=== PATIENT | male | born 1955 | race Caucasian/White ===

== ENCOUNTER → 2018-09-22 | Outpatient (CLI) | payer OTHER ==
[~2018-09-22] MED LIST: REGADENOSON 0.4 MG/5 ML DISP.SYRIN. IV ONE
--- NOTE | 2018-09-22 10:16 | PCVCIMAG ---
APPROVED REPORT Study performed: 09/22/2018 08:29:01 EXAM: Comprehensive 2D, Doppler, and color-flow Echocardiogram Patient Location: Echo lab Status: routine BSA: 2.02 HR: 67 bpmBP: 140/72 mmHg Rhythm: NSR Other Information Study Quality: Adequate Indications Dyspnea Palpitations coronary calcium score 2D Dimensions IVSd: 10.46 (7-11mm) LVDd: 37.65 mm PWd: 9.69 (7-11mm)Ascending Ao: 40.75 (22-36mm) LVDs: 32.18 (25-40mm) Left Atrium: 32.74 (27-40mm) Aortic Root: 39.21 mm LV Single Plane 4CH: 54.19 % LV Single Plane 2CH: 61.54 % Biplane EF: 56.9 % Volumes Left Atrial Volume (Systole) Single Plane 4CH: 66.42 mLSingle Plane 2CH: 68.66 mL LA ESV Index: 37.00 mL/m2 Aortic Valve AoV Peak Hany.: 1.33 m/s AO Peak Gr.: 7.11 mmHgLVOT Max P.27 mmHg LVOT Max V: 1.03 m/s Mitral Valve E/A Ratio: 0.7 MV Decel. Time: 330.75 ms MV E Max Hany.: 0.56 m/s MV A Hany.: 0.85 m/s MV PHT: 95.92 ms IVRT: 124.57 ms Pulmonary Valve PV Peak Hany.: 0.90 m/sPV Peak Gr.: 3.26 mmHg Pulmonary Vein P Vein S: 0.61 m/sP Vein A: 0.37 m/s P Vein D: 0.75 m/sP Vein A Dur.: 134.9 msec P Vein S/D Ratio: 0.81 Tricuspid Valve TR Peak Hany.: 3.02 m/s TR Peak Gr.: 36.36 mmHg Left Ventricle The left ventricle is normal size. There is normal LV segmental wall motion. There is normal left ventricular wall thickness. Left ventricular systolic function is normal. The left ventricular ejection fraction is within the normal range. LVEF is 55-60%. Grade I - abnormal relaxation pattern. Right Ventricle The right ventricle is normal size. The right ventricular systolic function is normal. Atria The left atrium size is normal. The right atrium size is normal. Aortic Valve The aortic valve is normal in structure. No aortic regurgitation is present. There is no aortic valvular stenosis. Mitral Valve The mitral valve is normal in structure. There is no mitral valve regurgitation noted. No evidence of mitral valve stenosis. Tricuspid Valve The tricuspid valve is normal in structure. Mild tricuspid regurgitation with PAP of 43 mmHg. Pulmonic Valve The pulmonary valve is normal in structure. There is no pulmonic valvular regurgitation. Great Vessels The ascending aortic root is mildly dilated to 4.1 cm. IVC is normal in size and collapses >50% with inspiration. Pericardium There is no pericardial effusion. There is no pleural effusion. <Conclusion> The left ventricle is normal size. There is normal left ventricular wall thickness. Left ventricular systolic function is normal. Grade I - abnormal relaxation pattern. The right ventricle is normal size. The left atrium size is normal. The aortic valve is normal in structure. The mitral valve is normal in structure. Mild tricuspid regurgitation with PAP of 43 mmHg.
--- NOTE | 2018-09-22 12:20 | PCVCIMAG ---
APPROVED REPORT Imaging Protocol: Rest Tc-99m/Stress Tc-99m 1 day Study performed: 09/22/2018 09:43:23 Indication: Palpitations, Elevated CA, SOB Patient Location: Out-Patient Stress Nurse: Marjorie Martin RN [place] Tech:Pio Curran NMRASHELB Ht: 5 ft 10 in Wt: 185 lbs BSA: 2.02 m2 HR: 63 bpm BP: 137/75 mmHg BMI: 26.54 Rhythm: Sinus Rhythm Medical History Medical History: Age, Hyperlipidemia, CAD Medications: ASA, Tramodol Allergies: No known drug allergies Pretest Chest Pain Characteristics: No chest pain Exercise History: Physically active Resting Data Rest SPECT myocardial perfusion imaging was performed in supine position 45 minutes following the intravenous injection of 11.4 mCi of Tc-99m Sestamibi. Time of rest injection: 09 Date: 09/22/2018 Administration Route: IV Administration Site: Right Arm Pharmacologic Stress Pharmacologic stress test was performed by injecting Regadenoson 0.4 mg IV push over 10-15 seconds immediately followed by the intravenous injection of 34.6 mCi of Tc-99m Sestamibi. Time of stress injection: 1015 Date: 09/22/2018 Administration Route: IV Administration Site: Right Arm Gated Stress SPECT was performed 45 minutes after stress injection. The images were gated to evaluate regional wall motion and calculate left ventricular ejection fraction. Stress Test Details Stress Test: Pharmacologic stress testing performed using 0.4 mg of regadenoson per 5 mL given IV over 10 seconds. Reason for pharmacologic stress test: SOB. HRMax Heart Rate (APMHR): 156 bpm Resting HR: 63 bpmTarget HR (85% APMHR): 132 bpm Max HR Achieved: 82 bpm % of APMHR: 52 Recovery HR: 76 bpm BP Resting BP: 137/75 mmHg Max BP: 129/64 mmHg Recovery BP: 125/68 mmHg ECG Resting ECG: Sinus Rhythm Stress ECG: Sinus Rhythm ST Change: Non-ischemic Recovery ECG: Sinus Rhythm Clinical Reason for Termination: Completed protocol Stress Symptoms: Dyspnea, Lightheaded Symptoms resolved with caffeine. Study Quality Study: Good Artifact: Mild Diaphragmatic artifact Study Data Post stress, the left ventricular ejection was 63%.. SSS: 0 SRS: 4 SDS: 0 TID = 0.95. Perfusion There is a small area of mildly reduced uptake in the apical segment of the inferior wall which is seen on the stress images as well as the resting images. This area thickens and moves normally and is most consistent with attenuation artifact. Wall Motion Normal left ventricular wall motion. Nuclear Conclusion ECG Findings: negative for ischemia Clinical Findings: non-diagnostic Nuclear Findings: equivocal for ischemia Exercise Capacity: not assessed Left Ventricular Function: normal There is a fixed apical defect with normal wall motion, suggestive for attenuation artifact. There is a small reversible defect in the apical lateral segment, unable to rule out ischemia. There is normal global and segmental LV systolic function.
== END | disposition home or self-care (01) ==
LOC: PCVCIMAG 08:40
PROVIDERS: ATTEND Internal Medicine Cardiovascular Disease
DX: I25.10 Atherosclerotic heart disease of native coronary artery without angina pectoris (principal); R06.09 Other forms of dyspnea; R00.2 Palpitations; R93.1 Abnormal findings on diagnostic imaging of heart and coronary circulation; R06.02 Shortness of breath; E78.5 Hyperlipidemia, unspecified
CPT/HCPCS: 78452; 93017; 93306; A9500; J2785

== ENCOUNTER → 2019-02-05 | Outpatient (CLI) | payer OTHER ==
--- NOTE | 2019-02-05 11:03 | PCVCIMAG ---
APPROVED REPORT Study performed: 02/05/2019 10:10:34 EXAM: Comprehensive 2D, Doppler, and color-flow Echocardiogram Patient Location: Echo lab Status: routine BSA: 2.00 HR: 46 bpmBP: 140/78 mmHg Rhythm: Bradycardia Other Information Study Quality: Adequate Indications Abnormal ECG Atrial Fibrillation Bradycardia Dyspnea 2D Dimensions IVSd: 10.05 (7-11mm) LVDd: 41.27 mm PWd: 10.23 (7-11mm)Ascending Ao: 43.72 (22-36mm) LVDs: 32.12 (25-40mm) Left Atrium: 34.23 (27-40mm) Aortic Root: 42.13 mm LV Single Plane 4CH: 54.89 % LV Single Plane 2CH: 56.10 % Biplane EF: 55.2 % Volumes Left Atrial Volume (Systole) Single Plane 4CH: 66.63 mLSingle Plane 2CH: 63.74 mL LA ESV Index: 33.00 mL/m2 Aortic Valve AoV Peak Hany.: 1.53 m/s AO Peak Gr.: 9.39 mmHgLVOT Max P.53 mmHg LVOT Max V: 1.06 m/s Mitral Valve E/A Ratio: 1.1 MV Decel. Time: 319.91 ms MV E Max Hany.: 0.52 m/s MV A Hany.: 0.46 m/s IVRT: 128.03 ms Pulmonary Valve PV Peak Hany.: 0.85 m/sPV Peak Gr.: 2.92 mmHg Pulmonary Vein P Vein S: 0.34 m/sP Vein A: 0.32 m/s P Vein D: 0.41 m/sP Vein A Dur.: 114.2 msec P Vein S/D Ratio: 0.83 Tricuspid Valve TR Peak Hany.: 2.85 m/s TR Peak Gr.: 32.45 mmHg Left Ventricle The left ventricle is normal size. There is normal LV segmental wall motion. There is normal left ventricular wall thickness. Left ventricular systolic function is normal. The left ventricular ejection fraction is within the normal range. LVEF is 55%. Grade I - abnormal relaxation pattern. Right Ventricle The right ventricle is normal size. The right ventricular systolic function is normal. Atria The left atrium size is normal. The right atrium size is normal. Aortic Valve Mild aortic valve sclerosis. Trace aortic regurgitation. There is no aortic valvular stenosis. Mitral Valve The mitral valve is normal in structure. Mild mitral regurgitation. No evidence of mitral valve stenosis. Tricuspid Valve The tricuspid valve is normal in structure. Mild tricuspid regurgitation with PAP of 42 mmHg. Pulmonic Valve The pulmonary valve is normal in structure. There is no pulmonic valvular regurgitation. Great Vessels Aortic root is mildly dilated to 4.2 cm. Sinus of Valsalva is dilated to 4.6 cm. Ascending aorta is dilated to 4.4 cm. IVC is dilated and collapses <50% with inspiration. Pericardium There is no pericardial effusion. There is no pleural effusion. <Conclusion> The left ventricle is normal size. There is normal left ventricular wall thickness. Left ventricular systolic function is normal. Grade I - abnormal relaxation pattern. The right ventricle is normal size. The left atrium size is normal. Mild aortic valve sclerosis. Trace aortic regurgitation. Mild mitral regurgitation. Mild tricuspid regurgitation with PAP of 42 mmHg. Ascending aorta is dilated to 4.4 cm.
== END | disposition home or self-care (01) ==
LOC: PCVCIMAG 10:03
PROVIDERS: ATTEND Internal Medicine Cardiovascular Disease
DX: I08.3 Combined rheumatic disorders of mitral, aortic and tricuspid valves (principal); R94.31 Abnormal electrocardiogram [ECG] [EKG]; I48.91 Unspecified atrial fibrillation; R00.1 Bradycardia, unspecified; R06.00 Dyspnea, unspecified
CPT/HCPCS: 93306

== ENCOUNTER → 2019-08-06 | Outpatient (CLI) | payer OTHER ==
--- NOTE | 2019-08-06 11:48 | PCVCIMAG ---
APPROVED REPORT Study performed: 08/06/2019 10:36:03 EXAM: Comprehensive 2D, Doppler, and color-flow Echocardiogram Patient Location: Echo lab Room #: [id number]: routine BSA: 2.17 HR: 54 bpmBP: 134/78 mmHg Rhythm: Bradycardia Other Information Study Quality: Good Indications Atrial Fibrillation Bradycardia CAD 2D Dimensions IVSd: 8.36 (7-11mm)LVOT Diam: 21.41 (18-24mm) LVDd: 49.48 mm PWd: 9.82 (7-11mm)Ascending Ao: 44.23 (22-36mm) LVDs: 35.60 (25-40mm) Left Atrium: 36.84 (27-40mm) Aortic Root: 38.29 mm LV Single Plane 4CH: 59.79 % LV Single Plane 2CH: 64.15 % Biplane EF: 61.5 % Volumes Left Atrial Volume (Systole) Single Plane 4CH: 63.83 mLSingle Plane 2CH: 73.83 mL Biplane LA Volume: 69.00 mLLA ESV Index: 32.00 mL/m2 Aortic Valve AoV Peak Hany.: 1.32 m/s AO Peak Gr.: 6.95 mmHgLVOT Max P.12 mmHg LVOT Max V: 0.88 m/s DINA Vmax: 2.41 cm2 Mitral Valve E/A Ratio: 1.0 MV Decel. Time: 243.62 ms MV E Max Hany.: 0.82 m/s MV A Hany.: 0.82 m/s IVRT: 92.27 ms TDI E/Lateral E': 9.11E/Medial E': 11.71 Medial E' Hany.: 0.07 m/s Lateral E' Hany.: 0.09 m/s Pulmonary Valve PV Peak Hany.: 0.77 m/sPV Peak Gr.: 2.40 mmHg Pulmonary Vein P Vein S: 0.68 m/sP Vein A: 0.34 m/s P Vein D: 0.59 m/sP Vein A Dur.: 131.5 msec P Vein S/D Ratio: 1.15 Tricuspid Valve TR Peak Hany.: 2.51 m/s TR Peak Gr.: 25.22 mmHg TV Vmax: 0.60 m/sPA Pressure: 32.00 mmHg Left Ventricle The left ventricle is normal size. There is normal LV segmental wall motion. There is normal left ventricular wall thickness. Left ventricular systolic function is normal. The left ventricular ejection fraction is within the normal range. LVEF is 60-65%. Right Ventricle The right ventricle is normal size. The right ventricular systolic function is normal. Atria The left atrium size is normal. The right atrium size is normal. Aortic Valve Aortic valve is trileaflet. The aortic valve is normal in structure and function. No aortic regurgitation is present. There is no aortic valvular stenosis. Mitral Valve The mitral valve is normal in structure. There is no mitral valve regurgitation noted. No evidence of mitral valve stenosis. Tricuspid Valve The tricuspid valve is normal in structure. Trace to mild tricuspid regurgitation with a PA pressure of 32 mmHg. Mild pulmonary hypertension. Pulmonic Valve The pulmonary valve is normal in structure. There is no pulmonic valvular regurgitation. Great Vessels The aortic root is normal in size. The ascending aorta is mildly dilated at 4.4 cm. Aortic arch is normal in caliber. IVC is normal in size and collapses >50% with inspiration. Pericardium There is no pericardial effusion. There is no pleural effusion. <Conclusion> The left ventricle is normal size. There is normal left ventricular wall thickness. Left ventricular systolic function is normal. The right ventricle is normal size. The left atrium size is normal. Aortic valve is trileaflet. The mitral valve is normal in structure. Trace to mild tricuspid regurgitation with a PA pressure of 32 mmHg. The ascending aorta is mildly dilated at 4.4 cm.
== END | disposition home or self-care (01) ==
LOC: PCVCIMAG 09:55
PROVIDERS: ATTEND Internal Medicine Cardiovascular Disease
DX: I48.0 Paroxysmal atrial fibrillation (principal); I25.10 Atherosclerotic heart disease of native coronary artery without angina pectoris; I27.20 Pulmonary hypertension, unspecified; E78.5 Hyperlipidemia, unspecified; I10 Essential (primary) hypertension; M10.9 Gout, unspecified
CPT/HCPCS: 93306